=== PATIENT | male | born 1945 | race Caucasian/White ===

== ENCOUNTER → 2016-05-29 | Day surgery (SDC) | payer OTHER ==
[~2016-05-29] MED LIST: BUPIVACAINE HCL PF 0.75% 30 ML VIAL ONE; LACTATED RINGER'S 1000 ML INJ 1,000 ML ONE; LIDOCAINE 1.5%/EPINEPHrine 1:200,000 PF SOLN 30 ML AMP ONE; MIDAZOLAM HCL 5 MG/ML VIAL (1 ML) ONE; PROPOFOL 200 MG/20 ML AMP IV ONE; ceFAZolin 2 GM PREMIX 50 ML ONE; ceFAZolin INJ 1,000 MG VIAL ONE
--- NOTE | 2016-05-31 15:39 | MP ---
cc: NORRIS CASTILLO M.D. DATE OF SURGERY: 05/31/2016. PREOPERATIVE DIAGNOSIS: 1. Left shoulder rotator cuff tear. 2. Left shoulder impingement syndrome. 3. Left shoulder labral biceps tear. 4. Osteoarthritis acromioclavicular joint. POSTOPERATIVE DIAGNOSIS: 1. Left shoulder rotator cuff tear. 2. Left shoulder impingement syndrome. 3. Left shoulder labral biceps tear. 4. Osteoarthritis acromioclavicular joint. PROCEDURE: 1. Left shoulder arthroscopic rotator cuff repair. 2. Left shoulder arthroscopic subacromial decompression. 3. Left shoulder arthroscopic extensive debridement of labrum and biceps. 4. Arthroscopic distal clavicle excision. SURGEON: Dr. Norris Castillo. SUPPORT REPRESENTATIVE: Fadumo Matthew ANESTHESIA General with an interscalene block. ESTIMATED BLOOD LOSS: Less than 10 cc. COMPLICATIONS: None. IMPLANTS USED: Arthrex. JUSTIFICATION FOR THE PROCEDURE: This patient is a 70-year-old male who injured her left arm. He has had extensive severe pain and weakness in regards to his shoulder and failure of conservative treatment. Clinical exam as well as MRI confirmed the above-mentioned findings. The patient was counselled as to the risks, benefits and alternatives to the above-named proposed surgical procedure and did wish to proceed with surgery. DESCRIPTION OF THE PROCEDURE IN DETAIL: Written consent was obtained. The patient was identified by name and taken to the operating room and placed in the supine position. General anesthesia was administered as well as 3 grams of IV Ancef. He did receive preoperative interscalene block by Dr. Gonzalez. The patient was carefully turned to the right lateral decubitus position. A lateral arm roll was placed. All bony prominences and pressure points were well padded. The neck position was carefully monitored and kept neutral. An arthroscopic arm pierre was gently applied to the left upper extremity with 10 pounds of traction placed. The left shoulder was prepped and draped using isopropyl alcohol, Hibiclens solution and DuraPrep solution. After a time out was performed, a standard posterior and anterior glenohumeral arthroscopic portal was established. The glenohumeral joint revealed evidence of extensive labral tearing on the anterior, superior and posterior aspects with evidence of a large near full thickness tear of the biceps tendon with fraying and fragmentation of the tendon within the joint. An arthroscopic shaver was introduced from the anterior portal. An extensive debridement of the labrum was performed to include the anterior, superior and posterior portions and also the biceps was extensively debrided. There was a small focal grade 2 chondromalacia portion in the midportion of the glenoid but no significant remaining chondromalacia noted. There was evidence of massive full-thickness tear of the supraspinatus and infraspinatus tendons as visualized from the glenohumeral joint. The humeral head was severely high-riding and there was also evidence of significant impingement. Attention was turned to the subacromial space where an arthroscopic shaver was introduced from the lateral portal. A was performed. The shaver was used to perform extensive bursectomy. An arthroscopic bur was used to perform an acromioplasty and the cautery device was used to release the coracoacromial ligament. Attention was turned to the acromioclavicular joint where there was evidence of severe osteoarthritis. An arthroscopic bur was used to perform a distal clavicle excision to remove approximately 1 cm of the distal clavicle. The bur was used initially from the lateral portal and subsequently from the anterior portal to complete the distal clavicle excision. The bur was used to decorticate the greater tuberosity in preparation for rotator cuff tendon repair. There was a massive tear involving the entire supraspinatus as well as infraspinatus tendon with significant retraction. At this point, two Arthrex Bio SwiveLock anchors were inserted along the medial row. Two separate lateral portals were then created for the purposes of shuttling sutures and implantation of anchors. A scorpion device was used to shuttle #2 FiberWire sutures to the anterior and posterior portions of the tendon in a FiberLink pattern. The FiberTape sutures through the medial row anchors was also fed to the anterior and posterior portions of the tear. An Arthrex double-row SpeedBridge construct was then created with implantation and tensioning lateral row anchors to include a posterolateral anchor and anterolateral anchor. After appropriate tensioning of sutures, implantation of the lateral row anchors, the rotator cuff repair was probed and noted to have good stability and fixation. The arthroscope portals were closed with 3-0 Prolene suture. Sterile dressings were applied. The was patient placed in a sling and swathe immobilizer. He tolerated the procedure well and there were no intraoperative complications noted. NOTE Wander Peter, physician assistant field hockey coach certified, was present during the entire procedure to include patient positioning and the procedure itself. The medical necessity of a physician assistant field hockey coach was indicated in this case due to the complexity of the procedure itself. He assisted with appropriate manipulation of the arm and also manipulation of the camera. He also assisted with both shuttling of sutures and also implantation of the suture anchors for purposes of rotator cuff tendon repair. MD AMAN Vivar/NILO /2:21 PM /3:18 PM
== END | disposition home or self-care (01) ==
LOC: ESDC 10:48
PROVIDERS: ATTEND Orthopaedic Surgery Sports Medicine
DX: M75.122 Complete rotator cuff tear or rupture of left shoulder, not specified as traumatic (principal); M75.42 Impingement syndrome of left shoulder; S46.212A Strain of muscle, fascia and tendon of other parts of biceps, left arm, initial encounter; M19.012 Primary osteoarthritis, left shoulder; E11.9 Type 2 diabetes mellitus without complications; Z79.4 Long term (current) use of insulin
CPT/HCPCS: 01630; 01991; 29823; 29824; 29826; 29827; 64417; 82948; C1713; J0690; J2250; J7120